=== PATIENT | male | born 1995 | race Caucasian/White ===

== ENCOUNTER 2022-05-01 17:38 | Emergency (ER) | payer OTHER ==
[~2022-05-01] VITALS: Ht 170.2 cm; Wt 68.0 kg
[2022-05-01] MEDS ORDERED: IV NS 1000 ML 1,000 ML IV ONE (18:45)
[2022-05-01] MEDS ORDERED: PROCHLORPERAZINE EDISYLATE 10 MG/2 ML VIAL IV ONE (18:45)
[2022-05-01] MEDS ORDERED: IV NORMAL SALINE 1000 ML BAG IV ONE (18:45)
[2022-05-01 19:22] LABS: HEMATOCRIT 40.8 % (36.7-47.1); MEAN CORPUSCULAR HEMOGLOBIN 31.8 uug (23.8-33.4); MEAN CORPUSCULAR VOLUME 94.5 fL (73.0-96.2); PLATELET COUNT (AUTO) 349 K/uL (152-348)
[2022-05-01] MEDS ORDERED: PROCHLORPERAZINE EDISYLATE 10 MG/2 ML VIAL ONE (19:41)
[2022-05-01 19:56] LABS: *BLOOD, URINE NEGATIVE (NEGATIVE); *CLARITY,URINE CLEAR (CLEAR); *COLOR,URINE YELLOW (YELLOW); *KETONES,URINE TRACE (NEGATIVE); *UROBILINOGEN,URINE 0.2 E.U./dl (NORMAL); LEUKOCYTE ESTERASE ,URINE NEGATIVE (NEGATIVE); NITRITE, URINE NEGATIVE (NEGATIVE); PH,URINE 5.5 (5.0-8.0); UGLUCOSE NEGATIVE (NEGATIVE)
--- NOTE | 2022-05-01 20:00 | NUR ---
Patient stated not able to provide stool sample. Will try to have bowel movement after fluid bag is finished.
[2022-05-01 20:01] LABS: BILIRUBIN,DIRECT 0.1 mg/dL (0.0-0.2); BILIRUBIN,TOTAL 0.5 mg/dL (0.2-1.0); CREATININE 1.1 mg/dL (0.6-1.3); POTASSIUM 3.8 mmol/L (3.5-5.1)
[2022-05-01 20:33] LABS: *BILIRUBIN,URIN 1+ (NEGATIVE)
[2022-05-01 20:58] LABS: BACTERIA,URINE FEW /HPF (NONE SEEN); RBC,URINE 0-3 /HPF (0-3); SQUAMOUS EPITHELIAL CELL,UR FEW /HPF (NONE SEEN); WBC,URINE 0-3 /HPF (0-3)
--- NOTE | 2022-05-01 21:30 | NUR ---
Patient states he does not want to provide stool sample at this time.
[2022-05-01] MEDS ORDERED: DIPH1TAB PO (21:52)
[2022-05-01] MEDS ORDERED: PROC10TA29 PO (21:52)
[2022-05-01 22:12] VITALS: BP 130/84
--- NOTE | 2022-05-01 22:12 | NUR ---
Patient discharged to home in stable condition. Written and verbal after care instructions given. Patient verbalizes understanding of instructions. Stressed follow up or return to ER for worsening s/s.
== END 2022-05-01 22:16 | disposition home or self-care (01) ==
LOC: ER 17:38
DX: A08.4 Viral intestinal infection, unspecified (principal); E86.0 Dehydration; R00.0 Tachycardia, unspecified; F17.200 Nicotine dependence, unspecified, uncomplicated
CPT/HCPCS: 99284; 96374; 96361; 80076; 80048; 81001; 83735; 85025; 36415; 93005; J0780; J7040; A4663